=== PATIENT | female | born 1985 | race Caucasian/White ===

== ENCOUNTER 2018-03-06 06:07 | Inpatient (IN) | payer MEDICAID, OTHER ==
[~2018-03-06] VITALS: Ht 157.5 cm; Wt 47.5 kg
[~2018-03-06 06:07] MED LIST: BUSP10TA PO; FLAG500T PO; FLUC150T PO; LEXA10TA PO; LOPE2 PO; ZOFR8TAB4 PO
[2018-03-06 06:22] VITALS: BP 133/89; PULSE 119; RESP 20
[2018-03-06] MEDS ORDERED: LORazepam 2 MG/ML VIAL IM ONE (06:30)
[2018-03-06] MEDS ORDERED: HALOPERIDOL LACTATE 5 MG/ML AMP IM ONE (06:30)
--- NOTE | 2018-03-06 06:43 | PD ---
HPI Chief Complaint: Psychiatric Symptoms Time Seen by Provider: 06:41 Travel History International Travel<30 days: No Contact w/Intl Traveler<30days: No Traveled to known affect area: No History of Present Illness HPI 33-year-old white female presents emergency department under Badillo act by . PD was contacted by an individual stating that the above patient had stolen guns had made suicidal statements. The gums were found in the patient's possession inside of her car. There is also drug paraphernalia with the patient. The patient here states that someone else has been giving her drugs. She has not been taking drugs on her own. She denies stealing the guns and making suicidal statements. The patient is acutely psychotic. She is not making sense. A complete history is not obtainable at this time. The patient is very paranoid and delusional. PFSH Past Medical History Medical History: Unable to Obtain Diminished Hearing: No Immunizations Current: No Tetanus Vaccination: Unknown ?: Unknown : 3 Para: 1 Miscarriage: 0 : 1 Past Surgical History Surgical History: Unable to Obtain Body Medical Devices: IUD PLACED Social History Alcohol Use: No Tobacco Use: No (hx of iv drug use none now) Substance Use: Yes (OXYCONTIN - PO AND IV) Allergies-Medications (Allergen,Severity, Reaction): Coded Allergies: ziprasidone (Unverified Allergy, Severe, Anaphylaxis, 06/11/17) Reported Meds & Prescriptions Reported Meds & Active Scripts Active Flagyl (Metronidazole) 500 Mg Tab 500 Mg PO BID Fluconazole 150 Mg Tab 150 Mg PO ONCE Imodium (Loperamide HCl) 2 Mg Cap 2 Mg PO Q6HR PRN Zofran Odt (Ondansetron HCl) 8 Mg Tab 8 Mg PO Q8 PRN Buspirone Hcl (Buspirone HCl) 10 Mg Tab 10 Mg PO BID Lexapro (Escitalopram Oxalate) 10 Mg Tab 20 Mg PO DAILY Review of Systems ROS Limitations: Psychotic Physical Exam Narrative GENERAL: Well-nourished, well-developed patient. SKIN: Warm and dry. HEAD: Normocephalic and atraumatic. EYES: No scleral icterus. No injection or drainage. ENT: No nasal drainage noted. Mucous membranes pink. Airway patent. NECK: Supple, trachea midline. Moves head freely without obvious discomfort. CARDIOVASCULAR: Regular rate and rhythm without murmurs, gallops, or rubs. RESPIRATORY: Breath sounds equal bilaterally. No accessory muscle use. GASTROINTESTINAL: Abdomen soft, non-tender, nondistended. EXTREMITIES: No cyanosis or edema. BACK: Nontender without obvious deformity. No CVA tenderness. NEURO: Patient is alert and oriented. no sensorimotor deficits. Nonfocal. Normal speech. PSYCH: Patient is acutely psychotic and delusional. Data Data Last Documented VS Vital Signs Date Time Temp Pulse Resp B/P (MAP) Pulse Ox O2 Delivery O2 Flow Rate FiO2 03/06/18 06:22 119 20 133/89 (104) Orders Orders Complete Blood Count With Diff (03/06/18 06:23) Comprehensive Metabolic Panel (03/06/18:23) Thyroid Stimulating Hormone (03/06/18:23) Ed Urine Pregnancytest Poc (03/06/18:23) Psych Screen (03/06/18:23) Haloperidol Inj (Haldol Inj) (03/06/18 06:30) Lorazepam Inj (Ativan Inj) (03/06/18 06:30) Restraints Non-Violent AVEL.Q3H (03/06/18 06:23) Drug Screen, Random Urine (03/06/18:23) Alcohol (Ethanol) (03/06/18:23) Salicylates (Aspirin) (03/06/18:23) Tylenol (Acetaminophen) (03/06/18 06:23) MDM Medical Decision Making Medical Screen Exam Complete: Yes Emergency Medical Condition: Yes Medical Record Reviewed: Yes Differential Diagnosis MDM: High Differential diagnoses: Schizophrenia, schizoaffective disorder, bipolar, anxiety, depression, adjustment reaction, mood disorder NOS, ODD, depressive disorder NOS,psychosis NOS, substance induced mood disorderinfection, electrolyte abnormality, malingering. Narrative Course Mental health screening discussed with the patient. Psychiatric screen ordered. Nonviolent restraints are ordered at 0625. Routine laboratory tests for medical clearance. Order for Haldol 10 mg IM and Ativan 2 mg IM. Patient may be restrained if she is uncooperative and a barrier to her care. This is related to the nursing staff. The patient will be considered medically clear once her laboratory tests are reviewed. This is medical clearance for psychiatric admission, psychosis NOS Diagnosis Primary Impression: Medical clearance for psychiatric admission Additional Impression: Unspecified psychosis Condition: Stable Rob Lyons March 06, 2018 06:43
[2018-03-06 07:23] LABS: AUTOMATED NEUTROPHIL # 6.5 TH/MM3 (1.8-7.7); BASOPHIL % 0.4 % (0.0-2.0); EOSINOPHIL % 0.4 % (0.0-4.0); HEMATOCRIT 42.7 % (35.0-46.0); HEMOGLOBIN 14.3 GM/DL (11.6-15.3); LYMPH % 29.8 % (9.0-44.0); LYMPHOCYTE # 3.2 TH/MM3 (1.0-4.8); MEAN CELL VOLUME 89.6 FL (80.0-100.0); MEAN CORPUSCULAR HEMOGLOBIN 30.1 PG (27.0-34.0); MEAN CORPUSCULAR HGB CONC 33.6 % (32.0-36.0); MONO % 8.5 % (0.0-8.0); MONOCYTE # 0.9 TH/MM3 (0-0.9); NEUT % 60.9 % (16.0-70.0); PLATELET COUNT 298 TH/MM3 (150-450); RED BLOOD COUNT 4.76 MIL/MM3 (4.00-5.30); RED CELL DISTRIBUTION WIDTH 13.7 % (11.6-17.2); WHITE BLOOD COUNT 10.7 TH/MM3 (4.0-11.0)
[2018-03-06 07:40] LABS: AST (GOT) 25 U/L (15-37); BICARBONATE 24.9 MEQ/L (21.0-32.0); BLOOD UREA NITROGEN 15 MG/DL (7-18); CALCIUM 9.6 MG/DL (8.5-10.1); CHLORIDE 107 MEQ/L (98-107); CREATININE 0.94 MG/DL (0.50-1.00); GLOMERULAR FILTRATION RATE 68 ML/MIN (>89); GLUCOSE,RANDOM 121 MG/DL (74-106); SODIUM (NA) 142 MEQ/L (136-145)
[2018-03-06 07:41] LABS: ALT (GPT) 29 U/L (10-53)
[2018-03-06 07:51] LABS: ALKALINE PHOSPHATASE 50 U/L (45-117); TOTAL BILIRUBIN ADULT 0.4 MG/DL (0.2-1.0); TOTAL PROTEIN 8.6 GM/DL (6.4-8.2)
[2018-03-06 08:04] LABS: ACETAMINOPHEN LESS THAN 2.0 MCG/ML (10.0-30.0)
[2018-03-06] MEDS ORDERED: LORazepam 0.5 MG TAB PO PRN (10:45)
[2018-03-06] MEDS ORDERED: LORazepam 2 MG/ML VIAL IM PRN ×2 (10:45→12:00)
[2018-03-06] MEDS ORDERED: ACETAMINOPHEN 325 MG TAB PO PRN (12:00)
[2018-03-06] MEDS ORDERED: MAGNESIUM HYDROXIDE SUSP 30 ML CUP PO PRN (12:00)
[2018-03-06] MEDS ORDERED: ALUMINUM/MAGNESIUM/SIMETH 30 ML CUP PO PRN (12:00)
[2018-03-06] MEDS ORDERED: LORazepam 1 MG TAB PO PRN (12:00)
[2018-03-06 13:34] VITALS: BP 98/65; PULSE 90; RESP 17; TEMP 98.2; O2SAT 99
--- NOTE | 2018-03-06 14:07 | HHI.HP ---
Provisional Diagnosis Admission Date March 06, 2018 at 10:45 [place]. Adjustment disorder with mixed disturbance of conduct and emotions Certification of Person's Competence To Provide Express and Informed Consent I have personally examined Heather Gimenez , a person being served at [facility] on, March 06, 2018 13:55. Express and informed consent means consent voluntarily given in writing, by a competent person, after sufficient explanation and disclosure of the subject matter involved to enable the person to make a knowing and willful decision without any element of force, fraud, deceit, duress, or other form of constraint or coercion. This person is 18 years of age or older, is not now known to be incompetent to consent to treatment with a guardian advocate, and does not have a health care surrogate or proxy currently making medical treatment decisions. I have found this person to be one of the following: [] Competent to provide express and informed consent, as defined above, for voluntary admission to this facility and is competent to provide express and informed consent for treatment. He/she has the consistent capacity to make well reasoned, willful, and knowing decisions concerning his or her medical or mental health treatment. The person fully and consistently understands the purpose of the admission for examination/placement and is fully capable of personally exercising all rights assured [place] [] Incompetent to provide express and informed consent to voluntary admission, and this is incompetent to provide express and informed consent to treatment. The person must be transferred to involuntary status and a petition for a guardian advocate filed with the Circuit Court. [x] Refusing to provide express and informed consent to voluntary admission but is competent to provide express and informed consent for treatment. The person must be discharged or transferred to involuntary status. Form shall be completed within 24 hours of a person's arrival at the receiving facility and filed in the clinical record of each person: 1. Admitted on a voluntary basis 2. Permitted to provide express and informed consent to his/her own treatment 3. Allowed to transfer from involuntary to voluntary status 4. Prior to permitting a person to consent to his or her own treatment after having been previously found incompetent to consent to treatment. History of Present Illness Capacity: Has Capacity HPI The patient is a 33-year-old white female presents emergency department under Badillo act by , there is no known psychiatric history, no known medical history , PD was contacted by an individual stating that the above patient had stolen guns had made suicidal statements. The gums were found in the patient's possession inside of her car. The patient here stated in the ER that someone else has been giving her drugs. She has not been taking drugs on her own. She initially denied stealing the guns and making suicidal statements. The patient was initially described as acutely psychotic, very disorganized, no making any sense, very paranoid and internally preoccupied. Patient was very agitated and finally aggressive and had to be medicated with Haldol 5 mg and Ativan 2 mg IM. On my psychiatric evaluation today the patient was found selectively mute, very oppositional, resistant, no answering any of my questions, basically paranoid and internally preoccupied. Despite of my multiple attempts she refused to cooperate. I tried to get collateral information from family member listed in the EMR, Pernell Wallace, , but they did not answer the phone. Review of Systems ROS Limitations: Uncooperative Past Family Social History Coded Allergies: ziprasidone (Unverified Allergy, Severe, Anaphylaxis, 06/11/17) Active Scripts Metronidazole (Flagyl) 500 Mg Tab, 500 MG PO BID, #14 TAB Prov:Gerri Daniels MD 11/21/15 Fluconazole (Fluconazole) 150 Mg Tab, 150 MG PO ONCE, #1 TAB Prov:Gerri Daniels MD 11/08/15 Loperamide Hcl (Imodium) 2 Mg Cap, 2 MG PO Q6HR Y for DIARRHEA, #30 CAP 0 Refills Prov:Live Nino MD 08/15/15 Ondansetron (Zofran Odt) 8 Mg Tab, 8 MG PO Q8 Y for NAUSEA, #10 TAB 1 Refill Prov:Live Nino MD 08/15/15 Buspirone Hcl (Buspirone Hcl) 10 Mg Tab, 10 MG PO BID, #60 TAB 2 Refills Prov:Anahi Danielle MD 07/22/15 Escitalopram Oxalate (Lexapro) 10 Mg Tab, 20 MG PO DAILY, #30 5 Refills Prov:Gerri Daniels MD 05/25/15 Current Medications Medications (Trade) Dose Ordered Sig/Iva Route Start Time Stop Time Status Last Admin (Ativan) 1 mg Q6H PRN PO 03/06/18 12:00 (Ativan Inj) 1 mg Q6H PRN IM 03/06/18 12:00 (Ativan) 0.5 mg Q12H PRN PO 03/06/18 10:45 (Ativan Inj) 0.5 mg Q12H PRN IM 03/06/18 10:45 (Tylenol) 650 mg Q4H PRN PO 03/06/18 12:00 (Milk Of Magnesia Liq) 30 ml DAILY PRN PO 03/06/18 12:00 (Mag-Al Plus Susp Liq) 30 ml Q6H PRN PO 03/06/18 12:00 (Habitrol 21 Mg Patch.24 Hr) 1 patch DAILY T-DERMAL 03/07/18 09:00 Miscellaneous Information 1 DAILY T-DERMAL 03/07/18 09:00 Physical Exam Vital Signs Vital Signs Date Time Temp Pulse Resp B/P (MAP) Pulse Ox O2 Delivery O2 Flow Rate FiO2 03/06/18 13:34 98.2 90 17 98/65 (76) 99 Lab Results Test 03/06/18 06:55 White Blood Count 10.7 TH/MM3 Red Blood Count 4.76 MIL/MM3 Hemoglobin 14.3 GM/DL Hematocrit 42.7 % Mean Corpuscular Volume 89.6 FL Mean Corpuscular Hemoglobin 30.1 PG Mean Corpuscular Hemoglobin Concent 33.6 % Red Cell Distribution Width 13.7 % Platelet Count 298 TH/MM3 Mean Platelet Volume 10.0 FL Neutrophils (%) (Auto) 60.9 % Lymphocytes (%) (Auto) 29.8 % Monocytes (%) (Auto) 8.5 % Eosinophils (%) (Auto) 0.4 % Basophils (%) (Auto) 0.4 % Neutrophils # (Auto) 6.5 TH/MM3 Lymphocytes # (Auto) 3.2 TH/MM3 Monocytes # (Auto) 0.9 TH/MM3 Eosinophils # (Auto) 0.0 TH/MM3 Basophils # (Auto) 0.0 TH/MM3 CBC Comment DIFF FINAL Differential Comment Blood Urea Nitrogen 15 MG/DL Creatinine 0.94 MG/DL Random Glucose 121 MG/DL Total Protein 8.6 GM/DL Albumin 4.0 GM/DL Calcium Level 9.6 MG/DL Alkaline Phosphatase 50 U/L Aspartate Amino Transf (AST/SGOT) 25 U/L Alanine Aminotransferase (ALT/SGPT) 29 U/L Total Bilirubin 0.4 MG/DL Sodium Level 142 MEQ/L Potassium Level 3.5 MEQ/L Chloride Level 107 MEQ/L Carbon Dioxide Level 24.9 MEQ/L Anion Gap 10 MEQ/L Estimat Glomerular Filtration Rate 68 ML/MIN Thyroid Stimulating Hormone 3rd Gen 1.300 uIU/ML Salicylates Level 2.3 MG/DL Acetaminophen Level LESS THAN 2.0 MCG/ML Ethyl Alcohol Level LESS THAN 3 MG/DL Mental Status Examination Appearance: Dirty, Disheveled Orientation: Person Motor Activity: Abnormal gait Speech: Other (Selectively mute) Mood: Angry Affect: Blunt Suicidal Ideation: Yes Suicidal Plan: Yes Suicidal Intention: No Homicidal Ideation: No Homicidal Plan: No Homicidal Intention: No Insight: Adequate Judgment: Poor Assessment & Plan Problem List: (1) Adjustment disorder with mixed disturbance of emotions and conduct ICD Codes: F43.25 - Adjustment disorder with mixed disturbance of emotions and conduct Assessment & Plan: As per Badillo act the patient has stolen a gun and threaten to commit suicide. On her arrival to the ER the patient was disorganized, paranoid, agitated, internally preoccupied and finally aggressive to the point that she had to be medicated with Haldol 5 mg and Ativan 2 mg IM. The patient apparently admitted that she has been using drugs, but not U tox or BAL were done. On psychiatric evaluation today the patient is selectively mute, she seems to be quite paranoid, internally stimulated, refusing to talk in spite of multiple attempts and reassurance. Given the level of psychosis and also her alleged suicidal ideation, the patient would be admitted in psychiatry for stabilization and safety. No medications prescribed at this moment. If patient become agitated and aggressive Haldol 5 mg and Ativan 2 mg IM stat can be given. home support worker intervention to help with collateral information, psychosocial assessment, to coordinate safe discharge. I will reorder again U tox. My impression is that this case would be related with polysubstance intoxication, but a primary psychotic or mood process needs to be rule out. Transfer to 2700 Assessment & Plan Estimated LOS: Syd Austin MD March 06, 2018 14:06
[2018-03-07 05:46] VITALS: BP 101/59; PULSE 58; RESP 16; TEMP 97.9; O2SAT 98
[2018-03-07 08:17] LABS: BICARBONATE 27.1 MEQ/L (21.0-32.0); BLOOD UREA NITROGEN 14 MG/DL (7-18); CALCIUM 8.7 MG/DL (8.5-10.1); CHLORIDE 108 MEQ/L (98-107); CHOLESTEROL 138 MG/DL (120-200); CREATININE 0.66 MG/DL (0.50-1.00); GLOMERULAR FILTRATION RATE 103 ML/MIN (>89); GLUCOSE,RANDOM 88 MG/DL (74-106); HDL CHOLESTEROL 57.3 MG/DL (40.0-60.0); LDL CHOLESTEROL 67 MG/DL (0-99); SODIUM (NA) 143 MEQ/L (136-145); TRIGLYCERIDES 70 MG/DL (42-150)
[2018-03-07] MEDS ORDERED: hydrOXYzine HCL 50 MG TAB PO PRN (08:45)
--- NOTE | 2018-03-07 08:50 | HHI.PYPN ---
Subjective Remarks Patient initially seen by Dr. Thomas who did the initial psychiatric H&P. I have finished the initial psychiatric template orders and on the med reconciliation review. Dr. Thomas also do the first opinion petition supporting Badillo act. Patient has been seen by me. I agree patient meets criteria for involuntary psychiatric hospitalization thus I will cosign second opinion petition supporting [employer] act. Patient seen by me with nurse Chaudhary in her room. Patient alert oriented to place time and situation look giving contradictory confusing history as related to her past psychiatric history substance abuse history living situation and offspring. She makes statements about being on Suboxone for that is that is not documented to make vague statements about polysubstance abuse as well unable to give any specific accurate information. She made illusions to spending time out of [facility] in the past also. Upon review of the EMR patient has not given a urine yet we will get a urine from her today and her on the OB/tox screen. Otherwise for now continue observation and assessment Review of Systems Except as stated in HPI: all other systems reviewed are Neg Mental Status Examination Appearance: Dirty, Disheveled Consciousness: Alert Orientation: Person, Place, Date/Time (Vague) Motor Activity: Normal gait Speech: Rapid, Hesitant Language: Adequate Fund of Knowledge: Adequate Attention and Concentration: Easily Distracted Memory: Impaired Mood: Angry, Oppositional, Irritable Affect: Other (Slight increased range and intensity) Thought Process & Associations: Disorganized Thought Content: Bizarre thinking Hallucination Type: None (Patient denies that at times he appears to be responding to internal stimuli) Delusion Type: Bizarre, Paranoid Suicidal Ideation: Yes (Patient denies with me today) Suicidal Plan: Yes (Patient denies with me today) Suicidal Intention: No Homicidal Ideation: No Homicidal Plan: No Homicidal Intention: No Insight: Poor Judgment: Poor Results Labs Test 03/07/18 07:19 Blood Urea Nitrogen 14 MG/DL Creatinine 0.66 MG/DL Random Glucose 88 MG/DL Calcium Level 8.7 MG/DL Sodium Level 143 MEQ/L Potassium Level 3.8 MEQ/L Chloride Level 108 MEQ/L Carbon Dioxide Level 27.1 MEQ/L Anion Gap 8 MEQ/L Estimat Glomerular Filtration Rate 103 ML/MIN Triglycerides Level 70 MG/DL Cholesterol Level 138 MG/DL LDL Cholesterol 67 MG/DL HDL Cholesterol 57.3 MG/DL Cholesterol/HDL Ratio 2.40 RATIO Vitals/IOs Vital Signs Date Time Temp Pulse Resp B/P (MAP) Pulse Ox O2 Delivery O2 Flow Rate FiO2 03/07/18 05:46 97.9 58 16 101/59 (73) 98 Assessment & Plan Problem List: (1) Adjustment disorder with mixed disturbance of emotions and conduct ICD Codes: F43.25 - Adjustment disorder with mixed disturbance of emotions and conduct (2) BRIEF PSYCHOTIC DISORDER ICD Codes: F23 - BRIEF PSYCHOTIC DISORDER Assessment & Plan Estimated LOS: days patient remained psychotic and delusional markedly confused and disorganized to be getting further labs. I have also sign second opinion petition supporting Badillo Justification for Cont. Inpt. At this time patient would decompensate a place to a lower level of care Discharge Planning We need to take patient's parents to see about placement issues Pepe Roman MD March 07, 2018 08:50
[2018-03-07] MEDS ORDERED: REMOVE OLD PATCH T-DERMAL SCH (09:00)
[2018-03-07] MEDS ORDERED: NICOTINE 21 MG/24 HR PATCH T-DERMAL SCH (09:00)
[2018-03-07] MEDS ORDERED: ESCITALOPRAM OXALATE 10 MG TAB PO SCH (09:00)
--- NOTE | 2018-03-07 13:08 | HHI.DS ---
Psychiatry Discharge Summary Inpatient Psychiatric care?: Yes Advance Directive: No Mental Health AdvanceDirective: No Health Care Proxy: No Admission Admission Date March 06, 2018 at 10:45 Admission Diagnosis: (1) Polysubstance abuse ICD Code: F19.10 - Other psychoactive substance abuse, uncomplicated (2) BRIEF PSYCHOTIC DISORDER ICD Code: F23 - BRIEF PSYCHOTIC DISORDER Brief History The patient is a 33-year-old white female presents emergency department under Badillo act by PD, there is no known psychiatric history, no known medical history , PD was contacted by an individual stating that the above patient had stolen guns had made suicidal statements. The gums were found in the patient's possession inside of her car. The patient here stated in the ER that someone else has been giving her drugs. She has not been taking drugs on her own. She initially denied stealing the guns and making suicidal statements. The patient was initially described as acutely psychotic, very disorganized, no making any sense, very paranoid and internally preoccupied. Patient was very agitated and finally aggressive and had to be medicated with Haldol 5 mg and Ativan 2 mg IM. On my psychiatric evaluation today the patient was found selectively mute, very oppositional, resistant, no answering any of my questions, basically paranoid and internally preoccupied. Despite of my multiple attempts she refused to cooperate. I tried to get collateral information from family member listed in the EMR, Pernell Wallace, , but they did not answer the phone. Tobacco Use In Past 30 Days: Refused To Answer Alcohol Use: Monthly or Less Hospital Course Patient initially seen by me poor progress note earlier this morning. She did give a urine specimen, toxicology positive for amphetamines and marijuana. It was discovered that she has been active [employer] act warrant out for her. There is a deputy waiting to take her to [facility] for her for some of the [employer] act for the treatment that she requires. Patient has a long history of multiple drug abuse. At this time patient reached maximum benefit of our brief stay. I will lift the [employer] act allow patient to be discharged to the [facility]'s deputy to be transported to [facility] under the [employer] act for further care and attention, the B no Rx by me Results Blood Pressure 101 / 59 Vital Signs Date Time Temp Pulse Resp B/P (MAP) Pulse Ox O2 Delivery O2 Flow Rate FiO2 03/07/18 05:46 97.9 58 16 101/59 (73) 98 Laboratory Tests Test 03/06/18 06:55 03/07/18 07:19 03/07/18 08:45 Monocytes (%) (Auto) 8.5 % (0.0-8.0) Random Glucose 121 MG/DL (74-106) Total Protein 8.6 GM/DL (6.4-8.2) Estimat Glomerular Filtration Rate 68 ML/MIN (>89) Salicylates Level 2.3 MG/DL (2.8-20.0) Acetaminophen Level LESS THAN 2.0 MCG/ML Chloride Level 108 MEQ/L (98-107) Urine Amphetamines Screen POS (NEG) Urine Cannabinoids Screen POS (NEG) Laboratory Results Test 03/07/18 07:19 Cholesterol Level 138 MG/DL (120-200) HDL Cholesterol 57.3 MG/DL (40.0-60.0) LDL Cholesterol 67 MG/DL (0-99) Triglycerides Level 70 MG/DL (42-150) Summary of Major Lab Results Urine toxicology positive for amphetamines and marijuana Summary of Procedures None done Pending results at discharge: No Medications # of Antipsychotic meds at D/C: 0 Approp Antipsych med options 1 - Minimum of three failed multiple trials of monotherapy. 2 - Documented plan to taper to monotherapy due to previous use of multiple meds OR cross-taper in progress at D/C. 3 - Documentation of augmentation of Clozapine. 4 - Justification other than those listed in allowable values 1-3, document here : Discharge Discharge Date: March 07, 2018 Discharge Diagnosis: (1) BRIEF PSYCHOTIC DISORDER Diagnosis: Principal ICD Code: F23 - BRIEF PSYCHOTIC DISORDER (2) Polysubstance abuse Diagnosis: Principal ICD Code: F19.10 - Other psychoactive substance abuse, uncomplicated Pt Condition on Discharge: Stable Discharge Disposition: Hospice/Med Facility Discharge Instructions Diet Instructions: As Tolerated, No Restrictions Activities you can perform: Regular-No Restrictions Scheduled Appointment: Alex Felton Discharge Time > 30 minutes Mental Status Examination Appearance: Dirty, Disheveled Consciousness: Alert Orientation: Person, Place, Date/Time (Vague) Motor Activity: Normal gait Speech: Rapid, Hesitant Language: Adequate Fund of Knowledge: Adequate Attention and Concentration: Easily Distracted Memory: Impaired Mood: Angry, Oppositional, Irritable Affect: Other (Slight increased range and intensity) Thought Process & Associations: Disorganized Thought Content: Bizarre thinking Hallucination Type: None (Patient denies that at times he appears to be responding to internal stimuli) Delusion Type: Bizarre, Paranoid Suicidal Ideation: Yes (Patient denies with me today) Suicidal Plan: Yes (Patient denies with me today) Suicidal Intention: No Homicidal Ideation: No Homicidal Plan: No Homicidal Intention: No Insight: Poor Judgment: Poor Discharge/Advance Care Plan Health Problems: (1) Adjustment disorder with mixed disturbance of emotions and conduct (2) BRIEF PSYCHOTIC DISORDER Goals to promote your health * To prevent worsening of your condition and complications * To maintain your health at the optimal level Directions to meet your goals Take your medications as prescribed Follow your dietary instruction Follow activity as directed Keep your appointments as scheduled Take your immunizations and boosters as scheduled If your symptoms worsen call your PCP, if no PCP go to Urgent Care Center or Emergency Room For 20/05 questions related to your inpatient stay or results of tests pending at discharge, please contact Dr. Pepe Roman at Smoking is Dangerous to Your Health. Avoid second hand smoking Pepe Roman MD March 07, 2018 13:08
[2018-03-07 16:02] LABS: HEMOGLOBIN A1C 5.5 % (4.3-6.0)
[2018-03-07] MEDS ORDERED: diphenhydrAMINE HCL 50 MG CAP PO PRN (21:00)
== END 2018-03-07 13:45 | DRG 885 ==
LOC: NEPD 06:07 → NEDA 10:45 → H260 13:25
PROVIDERS: ADMIT Psychiatry & Neurology Psychiatry; ATTEND Psychiatry & Neurology Psychiatry
DX: F23 Brief psychotic disorder (principal); F19.10 Other psychoactive substance abuse, uncomplicated
CPT/HCPCS: 80048; 80053; 80061; 80307; 83036; 84443; 85025; 96372; G0481; J1630; J2060

== ENCOUNTER 2018-04-12 12:24 | Emergency (ER) | payer OTHER ==
[~2018-04-12] VITALS: Ht 160 cm; Wt 59.0 kg
[2018-04-12 12:45] VITALS: BP 136/88; PULSE 102; RESP 18; TEMP 98.3; O2SAT 98
--- NOTE | 2018-04-12 13:23 | PD ---
HPI Chief Complaint: Psychiatric Symptoms Time Seen by Provider: 12:54 Travel History International Travel<30 days: No Contact w/Intl Traveler<30days: No Traveled to known affect area: No History of Present Illness HPI Patient is 33-year-old female presenting to the emergency department under Badillo act for psychiatric evaluation. Per the Badillo act report patient has had multiple manic episodes. Please officer present stated that patient was acting erratically and in no regards for anyone safety or her own. Patient was attempting to take her daughter, who is currently in the custody of the grandmother from the grandmother's home. Patient denies any illicit drug use, she denies any psychiatric history. She denies any physical complaints. [facility] Past Medical History Medical History: Denies Significant Hx Diminished Hearing: No Immunizations Current: No ?: Unknown : 3 Para: 1 Miscarriage: 0 : 1 Past Surgical History Body Medical Devices: IUD PLACED Social History Alcohol Use: No Tobacco Use: No (hx of iv drug use none now) Substance Use: Yes (OXYCONTIN - PO AND IV, methamphetamine) Allergies-Medications (Allergen,Severity, Reaction): Coded Allergies: ziprasidone (Unverified Allergy, Severe, Anaphylaxis, 06/11/17) Reported Meds & Prescriptions Reported Meds & Active Scripts Active Flagyl (Metronidazole) 500 Mg Tab 500 Mg PO BID Fluconazole 150 Mg Tab 150 Mg PO ONCE Imodium (Loperamide HCl) 2 Mg Cap 2 Mg PO Q6HR PRN Zofran Odt (Ondansetron HCl) 8 Mg Tab 8 Mg PO Q8 PRN Buspirone Hcl (Buspirone HCl) 10 Mg Tab 10 Mg PO BID Lexapro (Escitalopram Oxalate) 10 Mg Tab 20 Mg PO DAILY Review of Systems Except as stated in HPI: all other systems reviewed are Neg Psychiatric: Positive: Mood Disorder, Substance Abuse Physical Exam Narrative GENERAL: Well-developed, well-nourished female. Presenting in no acute distress. SKIN: Warm and dry. HEAD: Atraumatic. Normocephalic. EYES: Pupils equal and round. No scleral icterus. No injection or drainage. ENT: No nasal bleeding or discharge. Mucous membranes pink and moist. NECK: Trachea midline. No JVD. CARDIOVASCULAR: Regular rate and rhythm. RESPIRATORY: No accessory muscle use. Clear to auscultation. Breath sounds equal bilaterally. GASTROINTESTINAL: Abdomen soft, non-tender, nondistended. Hepatic and splenic margins not palpable. MUSCULOSKELETAL: Extremities without clubbing, cyanosis, or edema. No obvious deformities. NEUROLOGICAL: Awake and alert. No obvious cranial nerve deficits. Motor grossly within normal limits. Five out of 5 muscle strength in the arms and legs. Normal speech. PSYCHIATRIC: Appropriate mood and affect; insight and judgment normal. Data Data Last Documented VS Vital Signs Date Time Temp Pulse Resp B/P (MAP) Pulse Ox O2 Delivery O2 Flow Rate FiO2 04/12/18 12:45 98.3 102 18 136/88 (104) 98 Orders Orders Complete Blood Count With Diff (04/12/18 12:54) Comprehensive Metabolic Panel (04/12/18 12:54) Thyroid Stimulating Hormone (04/12/18 12:54) Urinalysis - C+S If Indicated (04/12/18 12:54) Psych Screen (04/12/18 12:54) Drug Screen, Random Urine (04/12/18 12:54) Alcohol (Ethanol) (04/12/18 12:54) Salicylates (Aspirin) (04/12/18 12:54) Tylenol (Acetaminophen) (04/12/18 12:54) MDM Medical Decision Making Medical Screen Exam Complete: Yes Emergency Medical Condition: Yes Interpretation(s) Vital Signs Date Time Temp Pulse Resp B/P (MAP) Pulse Ox O2 Delivery O2 Flow Rate FiO2 04/12/18 12:45 98.3 102 18 136/88 (104) 98 Differential Diagnosis Mood disorder versus substance abuse versus suicidal ideations versus homicidal ideations versus metabolic abnormality versus other Narrative Course Patient is a 33-year-old female presenting under Badillo act for psychiatric evaluation. Patient is well-appearing, her vital signs are stable. Patient is refusing to have blood or urine collected. Mental health screening discussed with the patient. Psychiatric screen ordered. Patient is medically clear for psychiatric evaluation. Medical records reviewed, patient was in as a Badillo act on March 07, 2018. Labs from that admission are as follows, chemistry is unremarkable, CBC was unremarkable, urine drug screen is positive for marijuana , amphetamines, hydromorphone, Buprenorphine. Diagnosis Primary Impression: Medical clearance for psychiatric admission Additional Impression: Polysubstance abuse Condition: Stable Michelle Lewis Apr 12, 2018 13:23
[2018-04-12] MEDS ORDERED: LORazepam 2 MG/ML VIAL IM ONE (15:45)
[2018-04-12] MEDS ORDERED: HALOPERIDOL LACTATE 5 MG/ML AMP IM ONE (15:45)
[2018-04-12] MEDS ORDERED: diphenhydrAMINE HCL 50 MG/ML VIAL IM ONE (15:45)
[2018-04-12 18:49] VITALS: PULSE 90; RESP 16; TEMP 98.7; O2SAT 98
[2018-04-12 21:06] LABS: AUTOMATED NEUTROPHIL # 3.8 TH/MM3 (1.8-7.7); BASOPHIL % 0.6 % (0.0-2.0); EOSINOPHIL % 0.5 % (0.0-4.0); HEMATOCRIT 40.2 % (35.0-46.0); HEMOGLOBIN 13.3 GM/DL (11.6-15.3); LYMPH % 39.9 % (9.0-44.0); MEAN CELL VOLUME 90.4 FL (80.0-100.0); MEAN CORPUSCULAR HEMOGLOBIN 29.9 PG (27.0-34.0); MEAN CORPUSCULAR HGB CONC 33.1 % (32.0-36.0); MEAN PLATELET VOLUME 9.5 FL (7.0-11.0); MONO % 7.8 % (0.0-8.0); MONOCYTE # 0.6 TH/MM3 (0-0.9); NEUT % 51.2 % (16.0-70.0); PLATELET COUNT 236 TH/MM3 (150-450); RED BLOOD COUNT 4.45 MIL/MM3 (4.00-5.30); RED CELL DISTRIBUTION WIDTH 14.7 % (11.6-17.2); WHITE BLOOD COUNT 7.4 TH/MM3 (4.0-11.0)
[2018-04-12 21:30] LABS: ALBUMIN 3.6 GM/DL (3.4-5.0); AST (GOT) 26 U/L (15-37); BICARBONATE 22.9 MEQ/L (21.0-32.0); BLOOD UREA NITROGEN 11 MG/DL (7-18); CHLORIDE 106 MEQ/L (98-107); GLOMERULAR FILTRATION RATE 96 ML/MIN (>89); GLUCOSE,RANDOM 83 MG/DL (74-106); SODIUM (NA) 140 MEQ/L (136-145)
[2018-04-12 21:42] LABS: ALKALINE PHOSPHATASE 56 U/L (45-117); ALT (GPT) 29 U/L (10-53); TOTAL BILIRUBIN ADULT 0.6 MG/DL (0.2-1.0); TOTAL PROTEIN 7.8 GM/DL (6.4-8.2)
[2018-04-12 21:57] VITALS: BP 106/59; PULSE 76; RESP 18; TEMP 98.1; O2SAT 100
[2018-04-12 22:00] LABS: ACETAMINOPHEN LESS THAN 2.0 MCG/ML (10.0-30.0)
[2018-04-13 02:30] VITALS: BP 109/73; PULSE 69; RESP 18; TEMP 98.2; O2SAT 98
[2018-04-13 06:24] VITALS: BP 121/76; PULSE 67; RESP 18; TEMP 98.4; O2SAT 99
== END 2018-04-13 14:33 | disposition short-term general hospital (02) ==
LOC: NEPJ 12:24
DX: F19.10 Other psychoactive substance abuse, uncomplicated (principal); F30.9 Manic episode, unspecified; Z79.899 Other long term (current) drug therapy; Z88.8 Allergy status to other drugs, medicaments and biological substances
CPT/HCPCS: 80053; 80307; 84443; 85025; 96372; 99283; J1200; J1630; J2060